=== PATIENT | female | born 1970 | race Two or more races ===

== ENCOUNTER 2017-03-08 09:49 | Emergency (ER) | payer SELFPAY ==
[2017-03-08] MEDS ORDERED: DIPHENHYDRAMINE HCL 25 MG CAPSULE ONE ×2 (10:40)
== END 2017-03-08 11:02 | disposition home or self-care (01) ==
LOC: ED 09:49
DX: L29.9 Pruritus, unspecified (principal)
CPT/HCPCS: 99282; 99283; A9270 ×2